=== PATIENT | male | born 1960 | race Caucasian/White ===

== ENCOUNTER 2023-03-26 06:45 | Day surgery (SDC) | payer BC ==
[2023-03-26] MEDS ORDERED: Lactated Ringers 1,000 ML IV SCH (07:00)
[2023-03-26] MEDS ORDERED: Propofol 200 MG/20 ML SDV ONE ×2 (07:23→08:06)
[2023-03-26] MEDS ORDERED: fentaNYL 50 MCG/ML SDV ONE (07:24)
[2023-03-26] MEDS ORDERED: Midazolam 1 MG/ML 2 ML SDV ONE (07:24)
== END 2023-03-26 10:00 | disposition home or self-care (01) ==
LOC: JP.SDS 06:45
PROVIDERS: ATTEND Student in an Organized Health Care Education/Training Program
DX: Z12.11 Encounter for screening for malignant neoplasm of colon (principal); D12.5 Benign neoplasm of sigmoid colon; K57.30 Diverticulosis of large intestine without perforation or abscess without bleeding; I10 Essential (primary) hypertension
CPT/HCPCS: 88305; J2250; J2704; J3010; J7120

== ENCOUNTER 2024-05-12 05:11 | Observation (INO) | payer BC ==
[2024-05-12 05:59] LABS: BASOPHILS PERCENT AUTO 0.1 % (0.1-1.3); HEMATOCRIT 43.3 % (38.4-49.7); HEMOGLOBIN 15.6 g/dL (12.9-16.9); IMMATURE GRAN ABSOLUTE AUTO 0.04 K/uL (0.00-0.23); IMMATURE GRAN PERCENT AUTO 0.3 % (0.0-0.7); LYMPHOCYTES ABSOLUTE AUTO 1.06 K/uL (0.8-3.3); LYMPHOCYTES PERCENT AUTO 9.1 % (11.4-47.7); MEAN CORPUSCULAR HEMOGLOBIN 32.7 pg (31.6-35.5); MEAN CORPUSCULAR VOLUME 90.8 fL (81.4-99.0); MONOCYTES ABSOLUTE AUTO 1.04 K/uL (0.20-0.90); MONOCYTES PERCENT AUTO 8.9 % (3.3-12.6); NEUTROPHILS ABSOLUTE AUTO 9.54 K/uL (1.0-7.6); NEUTROPHILS PERCENT AUTO 81.6 % (40.0-78.1); PLATELET COUNT,PLT 361 K/uL (130-375); RED BLOOD CELL COUNT 4.77 M/uL (4.14-5.76); WHITE BLOOD CELL COUNT,WBC 11.7 K/uL (3.2-11.0)
[2024-05-12] MEDS: fentaNYL 100 MCG/2 ML SDV IVPUSH ONE (06:02)
[2024-05-12] MEDS: Sodium Chloride 0.9% 1,000 ML IV STA (06:02)
[2024-05-12] MEDS: Sodium Chloride 0.9% 10 ML Syringe FLUSH PRN (06:03)
[2024-05-12 06:11] LABS: BASOPHILS ABSOLUTE AUTO 0.01 K/uL (0.00-0.10)
[2024-05-12 06:24] LABS: A/G RATIO 0.8 (1.2-2.2); ALANINE AMINOTRANSFERASE,ALT 40 U/L (12-78); ALBUMIN 3.3 g/dL (3.4-5.0); ALKALINE PHOSPHATASE 62 U/L (46-116); ASPARTATE AMNIOTRANSFERASE,AST 26 U/L (15-37); BILIRUBIN TOTAL 0.5 mg/dL (0.2-1.0); BLOOD UREA NITROGEN,BUN 39 mg/dL (7-18); CALCIUM 10.8 mg/dL (8.5-10.1); CARBON DIOXIDE,CO2 25 mmol/L (21-32); CHLORIDE,CL 102 mmol/L (100-108); CREATININE 1.2 mg/dL (0.8-1.3); EST CRCL DRUG DOSING (CG) 62.19 mL/min; ESTIMATED GFR 68 mL/min (>60); GLUCOSE RANDOM 148 mg/dL (74-106); POTASSIUM,K 3.4 mmol/L (3.6-5.2); PROTEIN TOTAL,TP 7.4 g/dL (6.4-8.2); SODIUM,NA 138 mmol/L (140-148); TROPONIN I HIGH SENSITIVITY 8.1 pg/mL (<=60.3)
[2024-05-12 06:25] LABS: ANION GAP 14.4 mmol/L (5.0-14.0)
[2024-05-12] MEDS: Iopamidol 612 MG/ML 100 ML Bottle IV STA (06:36)
[2024-05-12] MEDS: Sodium Chloride 0.9% 100 ML IV STA (06:37)
[2024-05-12] MEDS: HYDROmorphone 0.5 MG/0.5 ML Syringe IVPUSH PRN (07:54)
[2024-05-12] MEDS ORDERED: fentaNYL 250 MCG/5 ML SDV ONE ×2 (10:37→12:08)
[2024-05-12] MEDS ORDERED: Rocuronium 50 MG/5 ML Vial ONE (10:37)
[2024-05-12] MEDS ORDERED: Succinylcholine 200 MG/10 ML MDV ONE (10:37)
[2024-05-12] MEDS ORDERED: Propofol 200 MG/20 ML SDV ONE (10:37)
[2024-05-12] MEDS ORDERED: Neostigmine Methylsulfate 10 MG/10 ML MDV ONE (10:37)
[2024-05-12] MEDS ORDERED: Glycopyrrolate 0.2 MG/ML 5 ML MDV ONE (10:37)
[2024-05-12] MEDS ORDERED: Dexamethasone 4 MG/ML SDV ONE (10:37)
[2024-05-12] MEDS ORDERED: Ondansetron 4 MG/2 ML SDV ONE (10:37)
[2024-05-12] MEDS: Indocyanine Green 25 MG SDV IV ONE (10:44)
[2024-05-12] MEDS: Sodium Chloride 0.9% 1,000 ML IV SCH (10:57)
[2024-05-12] MEDS: ceFAZolin 2 GM in Premix Bag 1 BAG IV ONE (11:37)
[2024-05-12] MEDS: metroNIDAZOLE/Normal Saline 500 MG in Premix Bag 1 BAG IV ONE (11:38)
[2024-05-12] MEDS: Ropivacaine 50 ML, dexAMETHasone 8 MG, EPINEPHrine 0.4 MG, Sodium Chloride 0.9% 27.6 ML NERVRT SCH (11:45)
[2024-05-12] MEDS: Bupivacaine 0.5% 50 ML MDV ONE (11:53)
[2024-05-12] MEDS: Lidocaine 1% with EPINEPHrine 1:100,000 50 ML MDV ONE (11:54)
[2024-05-12] MEDS ORDERED: Labetalol 20 MG/4 ML Syringe ONE (12:15)
[2024-05-12] MEDS ORDERED: Lactated Ringers 1,000 ML ONE (12:46)
[2024-05-12] MEDS ORDERED: Ondansetron 4 MG/2 ML SDV IVPUSH PRN (15:04)
[2024-05-12] MEDS ORDERED: Acetaminophen/HYDROcodone 325-5 MG Tab PO PRN (15:05)
[2024-05-12] MEDS ORDERED: Metoclopramide 10 MG/2 ML SDV IV PRN (15:05)
[2024-05-12] MEDS: Acetaminophen/HYDROcodone 325-5 MG Tab PO PRN (16:17)
[2024-05-12] MEDS: Lactated Ringers 1,000 ML IV SCH (21:34)
[2024-05-13 05:29] LABS: BASOPHILS PERCENT AUTO 0.1 % (0.1-1.3); HEMOGLOBIN 14.4 g/dL (12.9-16.9); IMMATURE GRAN ABSOLUTE AUTO 0.08 K/uL (0.00-0.23); IMMATURE GRAN PERCENT AUTO 0.6 % (0.0-0.7); LYMPHOCYTES ABSOLUTE AUTO 1.17 K/uL (0.8-3.3); LYMPHOCYTES PERCENT AUTO 8.7 % (11.4-47.7); MEAN CORPUSCULAR HEMOGLOBIN 32.1 pg (31.6-35.5); MEAN CORPUSCULAR HGB CONC 35.1 g/dL (31.6-35.5); MEAN CORPUSCULAR VOLUME 91.5 fL (81.4-99.0); MONOCYTES ABSOLUTE AUTO 1.32 K/uL (0.20-0.90); MONOCYTES PERCENT AUTO 9.8 % (3.3-12.6); NEUTROPHILS ABSOLUTE AUTO 10.91 K/uL (1.0-7.6); NEUTROPHILS PERCENT AUTO 80.8 % (40.0-78.1); PLATELET COUNT,PLT 326 K/uL (130-375); RED BLOOD CELL COUNT 4.48 M/uL (4.14-5.76); WHITE BLOOD CELL COUNT,WBC 13.5 K/uL (3.2-11.0)
[2024-05-13 05:32] LABS: BASOPHILS ABSOLUTE AUTO 0.01 K/uL (0.00-0.10)
[2024-05-13 05:51] LABS: A/G RATIO 0.7 (1.2-2.2); ALANINE AMINOTRANSFERASE,ALT 81 U/L (12-78); ALBUMIN 2.7 g/dL (3.4-5.0); ALKALINE PHOSPHATASE 49 U/L (46-116); ASPARTATE AMNIOTRANSFERASE,AST 65 U/L (15-37); BILIRUBIN TOTAL 0.8 mg/dL (0.2-1.0); BLOOD UREA NITROGEN,BUN 25 mg/dL (7-18); CALCIUM 10.5 mg/dL (8.5-10.1); CARBON DIOXIDE,CO2 27 mmol/L (21-32); CHLORIDE,CL 100 mmol/L (100-108); CREATININE 1.1 mg/dL (0.8-1.3); EST CRCL DRUG DOSING (CG) 67.84 mL/min; ESTIMATED GFR 75 mL/min (>60); GLUCOSE RANDOM 143 mg/dL (74-106); POTASSIUM,K 3.6 mmol/L (3.6-5.2); PROTEIN TOTAL,TP 6.6 g/dL (6.4-8.2); SODIUM,NA 135 mmol/L (140-148)
[2024-05-13 05:52] LABS: ANION GAP 11.6 mmol/L (5.0-14.0)
== END 2024-05-13 12:46 | disposition home or self-care (01) ==
LOC: JP.ED 05:11 → JP.MS 09:45
PROVIDERS: ADMIT Surgery; ATTEND Surgery
DX: K81.0 Acute cholecystitis (principal); K81.1 Chronic cholecystitis; I10 Essential (primary) hypertension; E78.00 Pure hypercholesterolemia, unspecified; G47.33 Obstructive sleep apnea (adult) (pediatric); Z79.82 Long term (current) use of aspirin; Z79.899 Other long term (current) drug therapy
CPT/HCPCS: 00790; 36415; 47562; 74177; 80053; 83605; 83690; 84484; 85025; 93005; 93010; 96361; 96365; 96375; 96376; 99284; 99285; A9270; G0378; J0171; J0330; J0665; J0690; J1100; J1170; J1836; J1920; J2405; J2704; J2710; J2795; J3010; J3490; J7030; J7120; Q9967; 96374